=== PATIENT | female | born 1960 | race Caucasian/White ===

== ENCOUNTER 2019-04-02 15:37 | Inpatient (IN) | payer SELFPAY ==
--- NOTE | 2019-04-02 16:11 | ER Document Report ---
ED Medical Screen (RME) - General Chief Complaint: General Weakness Stated Complaint: LACK OF APPETITE/LOSS OF MOBILITY Time Seen by Provider: 04/02/19 16:04 Mode of Arrival: Wheelchair Information source: Patient, Relative TRAVEL OUTSIDE OF THE [place] IN LAST 30 DAYS: No - HPI Patient complains to provider of: WEIGHT LOSS Notes: 04/02/19 16:10 Patient is here with side seam machine operator at the bedside. Her last several months, the patient has not been eating and has been losing weight. Over the last 7 weeks she is been bedridden due to lack of energy. She does complain of some soreness to her bottom. She was sent in by urgent care. Exam Frail-appearing chronically ill-appearing, no active distress. Heart sounds normal. Lungs clear throughout. Pale. Plan CBC, CMP, magnesium, TSH, urinalysis An initial examination was made on the patient as part of the triage process, and it was determined a more comprehensive evaluation was necessary. Initial labs were ordered and patient was transferred to another provider in the ED who assumed care and finished evaluation and plan. - Related Data Allergies/Adverse Reactions: No Known Allergies Allergy (Unverified 04/02/19 15:40) Past Medical History - Social History Frequency of alcohol use: Occasional Drug Abuse: None Renal/ Medical History: Denies: Hx Peritoneal Dialysis Past Surgical History: Reports: Hx Abdominal Surgery - gastric bypass, Hx Section, Hx Orthopedic Surgery - right shoulder Physical Exam - Vital signs Vitals: Temp Pulse Resp BP Pulse Ox 98.2 F 118 H 16 76/56 L 97 04/02/19 15:45 04/02/19 15:45 04/02/19 15:45 04/02/19 15:45 04/02/19 15:45 Course - Vital Signs Vital signs: Temp Pulse Resp BP Pulse Ox 98.2 F 118 H 16 76/56 L 97 04/02/19 15:45 04/02/19 15:45 04/02/19 15:45 04/02/19 15:45 04/02/19 15:45
[2019-04-02 17:27] LABS: ABSOLUTE BASOPHILS # (AUTO) 0.1 10^3/uL (0.0-0.2); ABSOLUTE EOSINOPHILS # (AUTO) 0.1 10^3/uL (0.0-0.6); ABSOLUTE MONOCYTES (AUTO) 0.6 10^3/uL (0.1-1.4); ABSOLUTE NEUT (AUTO) 9.9 10^3/uL (1.7-8.2); BASOPHILS % (AUTO) 0.9 % (0-2); EOSINOPHILS % (AUTO) 0.6 % (0-6); HEMATOCRIT 31.7 % (36.0-47.0); HEMOGLOBIN 10.8 g/dL (12.0-15.5); LYMPHOCYTES % (AUTO) 15.5 % (13-45); MEAN CORPUSCULAR HGB CONC 34.1 g/dL (32.0-36.0); MEAN CORPUSCULAR VOLUME 103 fl (80-97); PLATELET COUNT 327 10^3/uL (150-450); RED BLOOD COUNT 3.09 10^6/uL (3.72-5.28); RED CELL DISTRIBUTION WIDTH 15.7 % (11.5-14.0); TOTAL CELLS COUNTED % (AUTO) 100 %; WHITE BLOOD COUNT 12.7 10^3/uL (4.0-10.5)
[2019-04-02 17:47] LABS: ALANINE AMINOTRANSFERASE 20 U/L (9-52); ALBUMIN 2.9 g/dL (3.5-5.0); ALKALINE PHOSPHATASE 263 U/L (38-126); ANION GAP 13 (5-19); ASPARTATE AMINO TRANSFERASE 76 U/L (14-36); BILIRUBIN,TOTAL 4.3 mg/dL (0.2-1.3); BLOOD UREA NITROGEN 16 mg/dL (7-20); CALCIUM 8.5 mg/dL (8.4-10.2); CARBON DIOXIDE 28 mmol/L (22-30); CHLORIDE 99 mmol/L (98-107); GLUCOSE 89 mg/dL (75-110); POTASSIUM 3.5 mmol/L (3.6-5.0); SODIUM 139.7 mmol/L (137-145); TOTAL PROTEIN 7.5 g/dL (6.3-8.2)
[2019-04-02] MEDS ORDERED: THIAMINE HCL INJ 200 MG/2 ML VIAL IV ONE (18:39)
[2019-04-02] MEDS ORDERED: DEXTROSE 5%-NORMAL SALINE 500 ML IV ONE (18:39)
[2019-04-02 18:54] LABS: APPEARANCE,URINE CLOUDY; BILIRUBIN,URINE SMALL (NEGATIVE); COLOR,URINE AMBER; GLUCOSE, URINE NEGATIVE (NEGATIVE); KETONES,URINE 20 mg/dL (NEGATIVE); LEUKOCYTE ESTERASE,URINE LARGE (NEGATIVE); NITRITE,URINE NEGATIVE (NEGATIVE); PROTEIN,URINE NEGATIVE (NEGATIVE); URINE SPECIFIC GRAVITY 1.012
[2019-04-02 19:40] LABS: CREATINE KINASE 29 U/L (30-135)
[2019-04-02] MEDS ORDERED: MAGNESIUM HYDROXIDE SUSP 30 ML UDCUP PO PRN (20:14)
[2019-04-02] MEDS ORDERED: ZOLPIDEM TARTRATE 5 MG TABLET PO PRN (20:14)
[2019-04-02] MEDS ORDERED: MAG HYDROX/AL HYDROX/SIMETH SUSP 30 ML UDCUP PO PRN (20:14)
[2019-04-02] MEDS ORDERED: ONDANSETRON HCL INJ/PF 4 MG/2 ML SDV IV PRN (20:14)
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
[2019-04-02] MEDS ORDERED: MVI, ADULT NO.1 WITH VIT K INJ 10 ML VIAL IV SCH (21:00)
[2019-04-02] MEDS: NORMAL SALINE 1000 ML 1,000 ML with POTASSIUM CHLORIDE 20 MEQ, MAGNESIUM SULFATE 8 MEQ,... IV SCH ×5 (22:36)
[2019-04-02] MEDS: APIXABAN 5 MG TABLET PO SCH (22:37)
[2019-04-02] MEDS: FAMOTIDINE 20 MG TABLET PO SCH (22:37)
[2019-04-03] LABS: URINE AMPHETAMINES SCREEN NEGATIVE; URINE BARBITURATES SCREEN NEGATIVE; URINE BENZODIAZEPINES SCREEN NEGATIVE; URINE COCAINE SCREEN NEGATIVE; URINE MARIJUANA (THC) SCREEN NEGATIVE; URINE METHADONE SCREEN NEGATIVE; URINE PHENCYCLIDINE SCREEN NEGATIVE
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
[2019-04-03] MEDS ORDERED: LEVOFLOXACIN 250 MG TABLET PO ONE (00:30)
[2019-04-03] MEDS: POTASSI CL 20 MEQ/D5-1/2NS 1L 1,000 ML IV PRN ×5 (01:57→19:05)
[2019-04-03 06:56] LABS: ABSOLUTE EOSINOPHILS # (AUTO) 0.2 10^3/uL (0.0-0.6); ABSOLUTE LYMPHOCYTES (AUTO) 2.5 10^3/uL (0.5-4.7); ABSOLUTE MONOCYTES (AUTO) 0.5 10^3/uL (0.1-1.4); ABSOLUTE NEUT (AUTO) 5.2 10^3/uL (1.7-8.2); ABSOLUTE RETICS # 0.041 10^6/uL (0.028-0.122); BASOPHILS % (AUTO) 0.4 % (0-2); EOSINOPHILS % (AUTO) 2.1 % (0-6); HEMATOCRIT 24.9 % (36.0-47.0); LYMPHOCYTES % (AUTO) 29.9 % (13-45); MEAN CORPUSCULAR HGB CONC 33.8 g/dL (32.0-36.0); MEAN CORPUSCULAR VOLUME 104 fl (80-97); MONOCYTES % (AUTO) 6.4 % (3-13); PLATELET COUNT 201 10^3/uL (150-450); RED CELL DISTRIBUTION WIDTH 15.9 % (11.5-14.0); RETICULOCYTE COUNT (AUTO) 1.71 % (0.66-2.85); SEGMENTED NEUTROPHILS % (AUTO) 61.2 % (42-78); TOTAL CELLS COUNTED % (AUTO) 100 %; WHITE BLOOD COUNT 8.5 10^3/uL (4.0-10.5)
[2019-04-03 07:07] LABS: HEMOGLOBIN 8.4 g/dL (12.0-15.5)
[2019-04-03 07:15] LABS: ANION GAP 11 (5-19); BLOOD UREA NITROGEN 12 mg/dL (7-20); CARBON DIOXIDE 20 mmol/L (22-30); CHLORIDE 108 mmol/L (98-107); CHOLESTEROL 130.16 mg/dL (0-200); GLUCOSE 116 mg/dL (75-110); IRON(TIBC) 38.3 ug/dL (37-170); PHOSPHORUS 2.3 mg/dL (2.5-4.5); POTASSIUM 3.9 mmol/L (3.6-5.0); SODIUM 139.3 mmol/L (137-145); TRIGLYCERIDES 96 mg/dL (<150)
[2019-04-03 07:26] LABS: DIRECT LDL 85 mg/dL (<100)
[2019-04-03] MEDS ORDERED: IRON PO SCH (07:45)
[2019-04-03] MEDS ORDERED: [UNRECOGNIZED DRUG - OTHER] PO SCH (07:45)
[2019-04-03] MEDS ORDERED: BIOTIN 2500 MCG PO SCH (07:45)
[2019-04-03] MEDS ORDERED: EDOXABAN TOSYLATE 60 MG PO SCH (07:45)
[2019-04-03] MEDS ORDERED: VITK PO SCH (07:45)
[2019-04-03] MEDS ORDERED: MV MIN PO SCH (07:45)
[2019-04-03] MEDS ORDERED: CALCIUM PO SCH (07:45)
[2019-04-03] MEDS ORDERED: (PENDING PHARMACY ID) (Folic Acid [Folic Acid] 0.8 MG) PO SCH (07:45)
[2019-04-03] MEDS ORDERED: FOLIC PO SCH (07:45)
[2019-04-03 08:10] LABS: FREE T3 1.96 pg/mL (2.77-5.27); FREE T4 (FREE THYROXINE) 1.51 ng/dL (0.78-2.19)
[2019-04-03 08:22] LABS: FOLATE > 20.00 ng/mL (>2.76)
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
--- NOTE | 2019-04-03 11:14 | EKG REPORT ---
SEVERITY:- ABNORMAL ECG - SINUS RHYTHM ATRIAL PREMATURE COMPLEX LOW VOLTAGE IN FRONTAL LEADS NONSPECIFIC T ABNORMALITIES, DIFFUSE LEADS PROLONGED QT INTERVAL : Confirmed by: Jaquan Guallpa 03-Apr-2019 11:14:09
[2019-04-03] MEDS: FAMOTIDINE 20 MG TABLET PO SCH ×2 (11:21→22:11)
[2019-04-03] MEDS: ESCITALOPRAM OXALATE 10 MG TABLET PO SCH (11:21)
[2019-04-03] MEDS: FOLIC ACID 1 MG TABLET PO SCH (11:21)
[2019-04-03] MEDS: DOCUSATE SODIUM 100 MG CAPSULE PO SCH ×2 (11:21→19:03)
[2019-04-03] MEDS: CHOLECALCIFEROL (D3) 1,000 UNIT TABLET PO SCH (11:22)
[2019-04-03] MEDS: APIXABAN 5 MG TABLET PO SCH ×2 (11:22→19:07)
[2019-04-03] MEDS: MULTIVITAMIN TABLET PO SCH (11:22)
[2019-04-03] MEDS: ALBUMIN HUMAN 12.5 GM/50 ML RTUINJ IV SCH ×4 (15:44→19:04)
[2019-04-03] MEDS: ZINC SULFATE 220 MG CAPSULE PO SCH (15:46)
[2019-04-03] MEDS: CALCIUM CARBONATE 500 MG TABLET PO SCH ×2 (16:12→19:03)
[2019-04-03] MEDS: LEVOFLOXACIN 250 MG TABLET PO SCH (22:11)
[2019-04-03] MEDS: NORMAL SALINE 1000 ML 1,000 ML with POTASSIUM CHLORIDE 20 MEQ, MAGNESIUM SULFATE 8 MEQ,... IV SCH ×5 (22:12)
[2019-04-04] MEDS: POTASSI CL 20 MEQ/D5-1/2NS 1L 1,000 ML IV PRN ×2 (00:16→04:25)
[2019-04-04 04:04] LABS: ABSOLUTE EOSINOPHILS # (AUTO) 0.2 10^3/uL (0.0-0.6); ABSOLUTE LYMPHOCYTES (AUTO) 2.2 10^3/uL (0.5-4.7); ABSOLUTE MONOCYTES (AUTO) 0.8 10^3/uL (0.1-1.4); ABSOLUTE NEUT (AUTO) 6.8 10^3/uL (1.7-8.2); BASOPHILS % (AUTO) 0.1 % (0-2); HEMATOCRIT 24.6 % (36.0-47.0); HEMOGLOBIN 8.3 g/dL (12.0-15.5); LYMPHOCYTES % (AUTO) 21.9 % (13-45); MEAN CORPUSCULAR HEMOGLOBIN 35.5 pg (27.0-33.4); MEAN CORPUSCULAR HGB CONC 33.7 g/dL (32.0-36.0); MEAN CORPUSCULAR VOLUME 105 fl (80-97); MONOCYTES % (AUTO) 7.6 % (3-13); PLATELET COUNT 183 10^3/uL (150-450); RED BLOOD COUNT 2.34 10^6/uL (3.72-5.28); SEGMENTED NEUTROPHILS % (AUTO) 68.4 % (42-78); TOTAL CELLS COUNTED % (AUTO) 100 %; WHITE BLOOD COUNT 9.9 10^3/uL (4.0-10.5)
[2019-04-04 04:28] LABS: ANION GAP 12 (5-19); BLOOD UREA NITROGEN 5 mg/dL (7-20); CALCIUM 7.4 mg/dL (8.4-10.2); CARBON DIOXIDE 16 mmol/L (22-30); CHLORIDE 109 mmol/L (98-107); GLUCOSE 116 mg/dL (75-110); PHOSPHORUS 1.5 mg/dL (2.5-4.5); SODIUM 136.9 mmol/L (137-145)
[2019-04-04 05:00] LABS: POTASSIUM 5.2 mmol/L (3.6-5.0)
[2019-04-04] MEDS ORDERED: DEXTROSE 5%-1/2 NORMAL SALINE 1,000 ML IV PRN (05:14)
--- NOTE | 2019-04-04 08:27 | RADIOLOGY REPORT (SQ) ---
EXAM DESCRIPTION: CHEST SINGLE VIEW COMPLETED DATE/TIME: 04/04/2019 8:10 am REASON FOR STUDY: shortness of breath COMPARISON: None. EXAM PARAMETERS: NUMBER OF VIEWS: One view. TECHNIQUE: Single frontal radiographic view of the chest acquired. RADIATION DOSE: NA LIMITATIONS: None. FINDINGS: LUNGS AND PLEURA: No opacities, masses or pneumothorax. No pleural effusion. MEDIASTINUM AND HILAR STRUCTURES: No masses. Contour normal. HEART AND VASCULAR STRUCTURES: Heart normal in size. Normal vasculature. BONES: No acute findings. HARDWARE: None in the chest. OTHER: No other significant finding. IMPRESSION: NO ACUTE RADIOGRAPHIC FINDING IN THE CHEST. TECHNICAL DOCUMENTATION: JOB ID: [id number] [employer]- All Rights Reserved Reading location - IP/workstation name: [email or web address]
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
[2019-04-04] MEDS: CALCIUM ACETATE 667 MG CAPSULE PO SCH ×3 (10:37→17:50)
[2019-04-04] MEDS: DOCUSATE SODIUM 100 MG CAPSULE PO SCH ×2 (10:37→17:51)
[2019-04-04] MEDS: MIDODRINE HCL 5 MG TABLET PO SCH ×2 (11:22→17:50)
[2019-04-04] MEDS: ZINC SULFATE 220 MG CAPSULE PO SCH (11:22)
[2019-04-04] MEDS: ESCITALOPRAM OXALATE 10 MG TABLET PO SCH (11:23)
[2019-04-04] MEDS: CALCIUM CARBONATE 500 MG TABLET PO SCH ×2 (11:23→17:50)
[2019-04-04] MEDS: FOLIC ACID 1 MG TABLET PO SCH (11:23)
[2019-04-04] MEDS: CHOLECALCIFEROL (D3) 1,000 UNIT TABLET PO SCH (11:23)
[2019-04-04] MEDS: MULTIVITAMIN TABLET PO SCH (11:24)
[2019-04-04] MEDS: APIXABAN 5 MG TABLET PO SCH ×2 (11:24→17:50)
[2019-04-04] MEDS: FAMOTIDINE 20 MG TABLET PO SCH ×2 (11:24→22:32)
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
[2019-04-04] MEDS ORDERED: PATIROMER 8.4 GM SUSP PACKET PO SCH (17:00)
[2019-04-04] MEDS: LEVOFLOXACIN 250 MG TABLET PO SCH (22:32)
[2019-04-04] MEDS: DEXTROSE 5%-1/2 NORMAL SALINE 1,000 ML IV PRN (22:35)
[2019-04-05 04:14] LABS: ABSOLUTE EOSINOPHILS # (AUTO) 0.2 10^3/uL (0.0-0.6); ABSOLUTE MONOCYTES (AUTO) 0.9 10^3/uL (0.1-1.4); ABSOLUTE NEUT (AUTO) 7.5 10^3/uL (1.7-8.2); BASOPHILS % (AUTO) 0.1 % (0-2); EOSINOPHILS % (AUTO) 1.9 % (0-6); HEMATOCRIT 26.1 % (36.0-47.0); HEMOGLOBIN 8.6 g/dL (12.0-15.5); LYMPHOCYTES % (AUTO) 25.7 % (13-45); MEAN CORPUSCULAR HEMOGLOBIN 34.8 pg (27.0-33.4); MEAN CORPUSCULAR HGB CONC 33.1 g/dL (32.0-36.0); MEAN CORPUSCULAR VOLUME 105 fl (80-97); MONOCYTES % (AUTO) 8.1 % (3-13); PLATELET COUNT 194 10^3/uL (150-450); RED BLOOD COUNT 2.49 10^6/uL (3.72-5.28); RED CELL DISTRIBUTION WIDTH 15.8 % (11.5-14.0); SEGMENTED NEUTROPHILS % (AUTO) 64.2 % (42-78); TOTAL CELLS COUNTED % (AUTO) 100 %; WHITE BLOOD COUNT 11.7 10^3/uL (4.0-10.5)
[2019-04-05 04:18] LABS: INTERNATIONAL RATION (INR) 2.51; PROTHROMBIN TIME 28.3 SEC (11.4-15.4)
[2019-04-05 04:44] LABS: ANION GAP 12 (5-19); BLOOD UREA NITROGEN 2 mg/dL (7-20); CARBON DIOXIDE 16 mmol/L (22-30); CHLORIDE 111 mmol/L (98-107); GLUCOSE 86 mg/dL (75-110); POTASSIUM 4.6 mmol/L (3.6-5.0); SODIUM 138.6 mmol/L (137-145)
[2019-04-05] MEDS: DEXTROSE 5%-1/2 NORMAL SALINE 1,000 ML IV PRN ×3 (05:07→23:30)
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
[2019-04-05] MEDS: DOCUSATE SODIUM 100 MG CAPSULE PO SCH ×2 (10:07→17:30)
[2019-04-05] MEDS: CHOLECALCIFEROL (D3) 1,000 UNIT TABLET PO SCH (10:07)
[2019-04-05] MEDS: FAMOTIDINE 20 MG TABLET PO SCH ×2 (10:08→21:12)
[2019-04-05] MEDS: CALCIUM ACETATE 667 MG CAPSULE PO SCH ×3 (10:08→21:06)
[2019-04-05] MEDS: FOLIC ACID 1 MG TABLET PO SCH (10:09)
[2019-04-05] MEDS: APIXABAN 5 MG TABLET PO SCH ×2 (10:09→17:30)
[2019-04-05] MEDS: ESCITALOPRAM OXALATE 10 MG TABLET PO SCH (10:09)
[2019-04-05] MEDS: MEGESTROL ACETATE SUSP 400 MG/10 ML UDCUP PO SCH (10:10)
[2019-04-05] MEDS: CALCIUM CARBONATE 500 MG TABLET PO SCH ×2 (10:12→17:29)
[2019-04-05] MEDS: ZINC SULFATE 220 MG CAPSULE PO SCH (10:12)
[2019-04-05] MEDS: MULTIVITAMIN TABLET PO SCH (10:17)
[2019-04-05] MEDS: MIDODRINE HCL 5 MG TABLET PO SCH ×2 (10:17→17:29)
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
[2019-04-05] MEDS: LEVOFLOXACIN 250 MG TABLET PO SCH (21:12)
[2019-04-06] MEDS: DEXTROSE 5%-1/2 NORMAL SALINE 1,000 ML IV PRN (07:46)
[2019-04-06] MEDS: CALCIUM ACETATE 667 MG CAPSULE PO SCH ×3 (08:10→19:03)
[2019-04-06] MEDS: ESCITALOPRAM OXALATE 10 MG TABLET PO SCH (10:12)
[2019-04-06] MEDS: FOLIC ACID 1 MG TABLET PO SCH (10:13)
[2019-04-06] MEDS: FAMOTIDINE 20 MG TABLET PO SCH ×2 (10:16→21:07)
[2019-04-06] MEDS: CHOLECALCIFEROL (D3) 1,000 UNIT TABLET PO SCH (10:17)
[2019-04-06] MEDS: MULTIVITAMIN TABLET PO SCH (10:17)
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
[2019-04-06] MEDS: MIDODRINE HCL 5 MG TABLET PO SCH ×2 (10:20→19:04)
--- NOTE | 2019-04-06 14:40 | PDOC PROGRESS REPORT ---
Subjective Progress Note for:: 04/06/19 Subjective:: This is a 59 year old female who presented with sacral ulcers, cachexia, poor oral intake. She was found to be hypotensive, tachycardic and dehydrated. She was also found to be depressed. Patient was IVCed by psych. Her blood pressures did improve with IV fluids and she was also started on midodrine. No acute event overnight. She says she continues to feel better. Denies suicidal or homicidal ideation. She does appear deconditioned. Awaiting PT eval. Reason For Visit: [place] Physical Exam Vital Signs: Temp Pulse Resp BP Pulse Ox 98.2 F 87 16 100/60 98 04/06/19 13:08 04/06/19 13:08 04/06/19 13:08 04/06/19 13:08 04/06/19 13:08 Intake & Output 04/05/19 04/06/19 04/07/19 06:59 06:59 06:59 Intake Total 1817 2294 1000 Output Total 1515 2050 Balance 834 124 8888 Weight 131 lb 9.855 oz 131 lb 6.328 oz General appearance: PRESENT: no acute distress, thin Head exam: PRESENT: atraumatic, normocephalic Eye exam: PRESENT: conjunctiva pink, EOMI, PERRLA. ABSENT: scleral icterus Ear exam: PRESENT: normal external ear exam Mouth exam: PRESENT: moist, tongue midline Neck exam: ABSENT: carotid bruit, JVD, lymphadenopathy, thyromegaly Respiratory exam: PRESENT: clear to auscultation francisco. ABSENT: rales, rhonchi, wheezes Cardiovascular exam: PRESENT: RRR. ABSENT: diastolic murmur, rubs, systolic murmur Pulses: PRESENT: normal dorsalis pedis pul GI/Abdominal exam: PRESENT: normal bowel sounds, soft. ABSENT: distended, guarding, mass, organolmegaly, rebound, tenderness Rectal exam: PRESENT: deferred Neurological exam: PRESENT: alert, awake, oriented to person, oriented to place, oriented to time, oriented to situation, CN II-XII grossly intact. ABSENT: motor sensory deficit Psychiatric exam: ABSENT: homicidal ideation, suicidal ideation Results Laboratory Results: 04/05/19 03:40 04/05/19 03:40 04/02/19 16:55 Creatine Kinase 29 L Impressions: Chest X-Ray 04/04/19 00:00 IMPRESSION: NO ACUTE RADIOGRAPHIC FINDING IN THE CHEST. Assessment and Plan - Diagnosis (1) Hypotension Is this a current diagnosis for this admission?: Yes Plan: Improved. She does report of having chronically low blood pressures. Likely related to volume depletion due to poor oral intake. (2) Cachexia Is this a current diagnosis for this admission?: Yes Plan: Secondary to poor intake from underlying depression. Appreciate dietitian recommendation. She is on Megace and ensure as well. (3) Depression Qualifiers: Depression Type: reactive depression Qualified Code(s): F32.9 - Major depressive disorder, single episode, unspecified Is this a current diagnosis for this admission?: Yes Plan: Psych following. Noted recommendation. Increase Lexapro to 20 mg daily and will add Buspar 5 mg bid. (4) Failure to thrive in adult Is this a current diagnosis for this admission?: Yes Plan: As per number 2. (5) Stage II decubitus ulcer Qualifiers: Pressure injury location: sacral region Qualified Code(s): L89.152 - Pressure ulcer of sacral region, stage 2 Is this a current diagnosis for this admission?: Yes Plan: Continue daily wound dressing. (6) Urinary tract infection Qualifiers: Urinary tract infection type: site unspecified Hematuria presence: without hematuria Qualified Code(s): N39.0 - Urinary tract infection, site not spe cified Is this a current diagnosis for this admission?: Yes Plan: Continue Levaquin for 3 more days. - Time Time Spent with patient: 25-34 minutes
[2019-04-06] MEDS: DOCUSATE SODIUM 100 MG CAPSULE PO SCH (19:02)
[2019-04-06] MEDS: MEGESTROL ACETATE SUSP 400 MG/10 ML UDCUP PO SCH (19:03)
[2019-04-06] MEDS: APIXABAN 5 MG TABLET PO SCH ×2 (19:03)
[2019-04-06] MEDS: CALCIUM CARBONATE 500 MG TABLET PO SCH ×2 (19:06→19:09)
[2019-04-06] MEDS: ZINC SULFATE 220 MG CAPSULE PO SCH (19:42)
[2019-04-06] MEDS: LEVOFLOXACIN 500 MG TABLET PO SCH (21:07)
[2019-04-06] MEDS: BUSPIRONE HCL 10 MG TABLET PO SCH (21:07)
[2019-04-07] MEDS: DEXTROSE 5%-1/2 NORMAL SALINE 1,000 ML IV PRN ×2 (00:04→20:59)
[2019-04-07] MEDS: CALCIUM ACETATE 667 MG CAPSULE PO SCH ×3 (08:21→18:52)
[2019-04-07] MEDS: MULTIVITAMIN TABLET PO SCH (12:03)
[2019-04-07] MEDS: CALCIUM CARBONATE 500 MG TABLET PO SCH ×2 (12:04→18:54)
[2019-04-07] MEDS: FOLIC ACID 1 MG TABLET PO SCH (12:04)
[2019-04-07] MEDS: CHOLECALCIFEROL (D3) 1,000 UNIT TABLET PO SCH (12:04)
[2019-04-07] MEDS: MEGESTROL ACETATE SUSP 400 MG/10 ML UDCUP PO SCH (12:06)
[2019-04-07] MEDS: DOCUSATE SODIUM 100 MG CAPSULE PO SCH ×2 (12:07→18:53)
[2019-04-07] MEDS: BUSPIRONE HCL 10 MG TABLET PO SCH ×2 (12:08→21:00)
[2019-04-07] MEDS: APIXABAN 5 MG TABLET PO SCH ×2 (12:09→18:54)
[2019-04-07] MEDS: ESCITALOPRAM OXALATE 10 MG TABLET PO SCH (12:09)
[2019-04-07] MEDS: FAMOTIDINE 20 MG TABLET PO SCH ×2 (12:10→21:00)
[2019-04-07] MEDS: MIDODRINE HCL 5 MG TABLET PO SCH ×2 (12:11→18:53)
[2019-04-07] MEDS: ZINC SULFATE 220 MG CAPSULE PO SCH (12:12)
--- NOTE | 2019-04-07 16:11 | PDOC PROGRESS REPORT ---
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 She was found to be hypotensive, tachycardic and dehydrated. She was also found to be depressed. Patient was IVCed by psych. Her blood pressures did improve with IV fluids and she was also started on midodrine. 04/06: She says she continues to feel better. Denies suicidal or homicidal ideation. She does appear deconditioned. Awaiting PT eval. 04/07: No acute event overnight. Denies acute complaint. She required significant assistance when evaluated by PT and has been recommneded to go to SNF. does express he prefers she go to SNF or short term rehab. Her IVC has been rescinded. Will initiate process for SNF placement. Reason For Visit: [facility] Physical Exam Vital Signs: Temp Pulse Resp BP Pulse Ox 98.2 F 91 16 105/69 99 04/07/19 12:25 04/07/19 12:25 04/07/19 12:25 04/07/19 12:25 04/07/19 12:25 Intake & Output 04/06/19 04/07/19 04/08/19 06:59 06:59 06:59 Intake Total 2294 2355 Output Total 2050 2200 Balance 244 155 Weight 131 lb 6.328 oz 133 lb 13.129 oz General appearance: PRESENT: no acute distress, well-developed, well-nourished Head exam: PRESENT: atraumatic, normocephalic Eye exam: PRESENT: conjunctiva pink, EOMI, PERRLA. ABSENT: scleral icterus Ear exam: PRESENT: normal external ear exam Mouth exam: PRESENT: moist, tongue midline Neck exam: ABSENT: carotid bruit, JVD, lymphadenopathy, thyromegaly Respiratory exam: PRESENT: clear to auscultation francisco. ABSENT: rales, rhonchi, wheezes Cardiovascular exam: PRESENT: RRR. ABSENT: diastolic murmur, rubs, systolic murmur Pulses: PRESENT: normal dorsalis pedis pul GI/Abdominal exam: PRESENT: normal bowel sounds, soft. ABSENT: distended, guarding, mass, organolmegaly, rebound, tenderness Rectal exam: PRESENT: deferred Extremities exam: PRESENT: full ROM. ABSENT: calf tenderness, clubbing, pedal edema Neurological exam: PRESENT: alert, awake, oriented to person, oriented to place, oriented to time, oriented to situation, CN II-XII grossly intact. ABSENT: motor sensory deficit Results Laboratory Results: 04/05/19 03:40 04/05/19 03:40 04/02/19 16:55 Creatine Kinase 29 L Impressions: Chest X-Ray 04/04/19 00:00 IMPRESSION: NO ACUTE RADIOGRAPHIC FINDING IN THE CHEST. Assessment and Plan - Diagnosis (1) Hypotension Is this a current diagnosis for this admission?: Yes Plan: Improved. She does report of having chronically low blood pressures. Likely related to volume depletion due to poor oral intake. 04/07: Resolved. (2) Cachexia Is this a current diagnosis for this admission?: Yes Plan: Secondary to poor intake from underlying depression. Appreciate dietitian recommendation. She is on Megace and ensure as well. (3) Depression Qualifiers: Depression Type: reactive depression Qualified Code(s): F32.9 - Major depressive disorder, single episode, unspecified Is this a current diagnosis for this admission?: Yes Plan: Psych following. Noted recommendation. Increased Lexapro to 20 mg daily and added Buspar 5 mg bid. (4) Failure to thrive in adult Is this a current diagnosis for this admission?: Yes Plan: As per number 2. (5) Stage II decubitus ulcer Qualifiers: Pressure injury location: sacral region Qualified Code(s): L89.152 - Pressure ulcer of sacral region, stage 2 Is this a current diagnosis for this admission?: Yes Plan: Continue daily wound dressing. (6) Urinary tract infection Qualifiers: Urinary tract infection type: site unspecified Hematuria presence: without hematuria Qualified Code(s): N39.0 - Urinary tract infection, site not specified Is this a current diagnosis for this admission?: Yes Plan: Continue Levaquin for 2 more days. (7) Physical deconditioning Is this a current diagnosis for this admission?: Yes Plan: Initiate placement process for SNF. (8) History of DVT (deep vein thrombosis) Is this a current diagnosis for this admission?: Yes Plan: Her Edoxaban was switched to Eliquis per patient's request as he said they are able to get more discounted rate with Eliquis. - Time Time Spent with patient: 15-24 minutes
[2019-04-07] MEDS: LEVOFLOXACIN 500 MG TABLET PO SCH (21:00)
[2019-04-08] MEDS: DEXTROSE 5%-1/2 NORMAL SALINE 1,000 ML IV PRN ×2 (05:05→13:13)
[2019-04-08] MEDS: CALCIUM ACETATE 667 MG CAPSULE PO SCH ×2 (08:44→11:27)
[2019-04-08] MEDS: MULTIVITAMIN TABLET PO SCH (11:27)
[2019-04-08] MEDS: CALCIUM CARBONATE 500 MG TABLET PO SCH (11:27)
[2019-04-08] MEDS: FAMOTIDINE 20 MG TABLET PO SCH (11:27)
[2019-04-08] MEDS: ZINC SULFATE 220 MG CAPSULE PO SCH (11:27)
[2019-04-08] MEDS: DOCUSATE SODIUM 100 MG CAPSULE PO SCH (11:28)
[2019-04-08] MEDS: MIDODRINE HCL 5 MG TABLET PO SCH (11:28)
[2019-04-08] MEDS: ESCITALOPRAM OXALATE 10 MG TABLET PO SCH (11:28)
[2019-04-08] MEDS: CHOLECALCIFEROL (D3) 1,000 UNIT TABLET PO SCH (11:28)
[2019-04-08] MEDS: BUSPIRONE HCL 10 MG TABLET PO SCH (11:28)
[2019-04-08] MEDS: APIXABAN 5 MG TABLET PO SCH (11:28)
[2019-04-08] MEDS: FOLIC ACID 1 MG TABLET PO SCH (11:28)
[2019-04-08] MEDS: MEGESTROL ACETATE SUSP 400 MG/10 ML UDCUP PO SCH (11:29)
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
[2019-04-08 13:35] VITALS: BP 105/74
== END 2019-04-08 15:48 | DRG 881 ==
LOC: ER 15:37 → EH 20:50 → 3N 23:24 → ICU 04-03 03:50 → 3W 04-05 14:18
PROVIDERS: ADMIT Emergency Medicine; ATTEND Emergency Medicine
DX: F32.9 Major depressive disorder, single episode, unspecified (principal); R64 Cachexia; Z68.1 Body mass index [BMI] 19.9 or less, adult; N39.0 Urinary tract infection, site not specified; L89.152 Pressure ulcer of sacral region, stage 2; I95.9 Hypotension, unspecified; E86.0 Dehydration; R00.0 Tachycardia, unspecified; M62.81 Muscle weakness (generalized); R58 Hemorrhage, not elsewhere classified; D53.9 Nutritional anemia, unspecified; R62.7 Adult failure to thrive; B96.20 Unspecified Escherichia coli [E. coli] as the cause of diseases classified elsewhere; Z73.0 Burn-out; Z86.718 Personal history of other venous thrombosis and embolism; Z79.02 Long term (current) use of antithrombotics/antiplatelets; Z98.84 Bariatric surgery status; Z91.010 Allergy to peanuts; Z74.01 Bed confinement status
CPT/HCPCS: 36415; 71045; 80048; 80053; 80061; 80307; 81001; 82533; 82550; 82607; 82728; 82746; 83540; 83550; 83735; 84100; 84439; 84443; 84481; 85025; 85045; 85610; 87086; 87088; 87186; 93005; 93010; 96361; 96374; 99285; J3411; J3475; J3480; J3490; J7030; J7042; P9047